=== PATIENT | female | born 1945 | race Caucasian/White ===

== ENCOUNTER 2016-09-18 19:25 | Inpatient (IN) | payer BC ==
[~2016-09-18] VITALS: Ht 162.6 cm; Wt 54.4 kg
--- NOTE | 2016-09-18 19:32 | NUR ---
PT SHOWING BIZARRE BEHAVIOR (PER CONSERVATOR)NEEDS PSYCH EVAL, PT BIB CONSERVATOR FOR EVALUATION, PT PRESENTS WITH BEHAVIOR CHANGES THEY NOTED,HX PSYCHOSIS,SCHIZO. PT IS ALERT, ORIENTED X 1-2, NO RESP DISTRESS NOTED OR REPORTED UPON ASSESSMENT...
[2016-09-18] MEDS ORDERED: CARB100O2 PO (19:56)
[2016-09-18] MEDS ORDERED: [UNRECOGNIZED DRUG - CODE] PO (19:56)
[2016-09-18] MEDS ORDERED: DOCU240C26 PO (19:56)
[2016-09-18] MEDS ORDERED: TRAZ-144 PO (19:56)
[2016-09-18] MEDS ORDERED: HALO2ORA PO (19:56)
[2016-09-18] MEDS ORDERED: MULT-70 PO (19:56)
[2016-09-18 21:00] LABS: BASOPHILS # (AUTO) 0.1 K/uL (0.0-8.0); BASOPHILS % (AUTO) 0.8 % (0.0-2.0); EOSINOPHILS # (AUTO) 0.1 K/uL (0.0-0.7); HEMATOCRIT 36.6 % (37-47); HEMOGLOBIN 12.4 G/DL (12.0-16.0); LYMPHOCYTES # (AUTO) 3.2 K/UL (0.8-4.8); LYMPHOCYTES % (AUTO) 43.6 % (20.5-51.5); MEAN CORPUSCULAR HGB CONC 34 g/dL (32.0-37.0); MEAN CORPUSCULAR VOLUME 94.9 FL (81.0-99.0); MONOCYTES # (AUTO) 0.5 K/UL (0.1-1.30); MONOCYTES % (AUTO) 6.8 % (0.0-11.0); NEUTROPHILS # (AUTO) 3.5 K/UL (1.8-8.9); NEUTROPHILS % (AUTO) 46.8 % (38.5-71.5); PLATELET COUNT (AUTO) 403 K/UL (150-450); RED BLOOD CELL COUNT(AUTO) 3.86 MIL/UL (4.2-5.4); RED CELL DISTRIBUTION WIDTH 12.2 % (11.5-14.5); WHITE BLOOD COUNT (AUTO) 7.4 K/UL (4.0-11.2)
[2016-09-18 21:09] LABS: AMMONIA 14 umol/L (11-32)
[2016-09-18 21:14] LABS: ETHANOL < 3 MG/DL (0-0)
[2016-09-18 21:19] LABS: CALCIUM 8.9 mg/dL (8.5-10.1); CARBON DIOXIDE 28 mmol/L (21-32); CHLORIDE 101 mmol/L (98-107); CREATININE 0.6 mg/dL (0.6-1.3); GLUCOSE 112 mg/dL (74-106); POTASSIUM 4.3 mmol/L (3.5-5.1); SODIUM SERUM 137 mmol/L (136-145); UREA NITROGEN, BLOOD 10 mg/dL (7-18)
[2016-09-18 21:24] LABS: *BILIRUBIN,URIN NEGATIVE (NEGATIVE); *BLOOD, URINE 1+ (NEGATIVE); *COLOR,URINE YELLOW (YELLOW); *KETONES,URINE NEGATIVE (NEGATIVE); *PROTEIN,URINE NEGATIVE (NEGATIVE); *UROBILINOGEN,URINE 0.2 E.U./dl (NORMAL); LEUKOCYTE ESTERASE ,URINE 1+ (NEGATIVE); PH,URINE 7.5 (5.0-8.0); UGLUCOSE NEGATIVE (NEGATIVE)
[2016-09-18 21:29] LABS: THYROID STIMULATING HORMONE 3.881 mIU/mL (0.358-3.740)
[2016-09-18 21:29] LABS: *AMPHETAMINE, URINE NEGATIVE (NEGATIVE); *BARBITURATE, URINE NEGATIVE (NEGATIVE); *CANNABINOID, URINE NEGATIVE (NEGATIVE); *COCCAINE, URINE NEGATIVE (NEGATIVE); *OPIATE, URINE NEGATIVE (NEGATIVE); *PHENCYCLIDINE SCREEN,URINE NEGATIVE (NEGATIVE)
[2016-09-18] MEDS ORDERED: Medication Not On Formulary EA (Docusate Calcium 240 MG) PO SCH (21:30)
[2016-09-18 21:31] LABS: *CLARITY,URINE SLIGHTLY CLOUDY (CLEAR); NITRITE, URINE POSITIVE (NEGATIVE)
[2016-09-18 21:33] LABS: BACTERIA,URINE MANY /HPF (NONE SEEN)
[2016-09-18 21:34] LABS: ACETAMINOPHEN < 2.0 ug/mL (10-30); ALANINE AMINOTRANSFERASE 25 U/L (14-59); ALBUMIN 3.8 g/dL (3.4-5.0); ALKALINE PHOSPHATASE 69 U/L (50-136); ASPARTATE AMINOTRANSFERASE 20 U/L (15-37); BILIRUBIN,DIRECT < 0.1 mg/dL (0.0-0.2); BILIRUBIN,TOTAL 0.1 mg/dL (0.2-1.0)
[2016-09-18] MEDS ORDERED: HALOPERIDOL 0.5 MG TABLET PO ONE (22:15)
[2016-09-18] MEDS ORDERED: diphenhydrAMINE 50 MG CAPSULE PO ONE (22:15)
[2016-09-18] MEDS ORDERED: LORAZEPAM 1 MG TABLET ONE (22:24)
[2016-09-18] MEDS ORDERED: diphenhydrAMINE 50 MG/1 ML VIAL IM ONE (22:30)
[2016-09-18] MEDS ORDERED: HALOPERIDOL LACTATE 5 MG/1 ML VIAL IM ONE (22:30)
[2016-09-18] MEDS ORDERED: diphenhydrAMINE 50 MG CAPSULE ONE (22:33)
[2016-09-18] MEDS ORDERED: diphenhydrAMINE 50 MG/1 ML VIAL ONE (22:39)
[2016-09-18] MEDS ORDERED: HALOPERIDOL LACTATE 5 MG/1 ML VIAL ONE (22:39)
--- NOTE | 2016-09-18 22:40 | NUR ---
pt given IM intervention as pt began to get agitated, restless, and argumentative, nurse attempted to redirect pt, offered food, water, but pt refused, pt continued to be agitated, and restless... pt hallucinating, with loose associations, speech is coherent but irrelevant at times....
[2016-09-18] MEDS ORDERED: LORAZEPAM 0.5 MG TABLET PO ONE (22:45)
--- NOTE | 2016-09-18 23:11 | NUR ---
Pt. admitted to Med surg , under care of Dr. Johnson, Belongs List completed, pt is alert, awake, oriented x 2, no resp distress noted or reported upon transfer assessment...
--- NOTE | 2016-09-18 23:20 | NUR ---
RECEIVED PT FROM ER BIB STAFF, PT IS ALERT AND ORIENTED TO NAME, PLACE AND TIME, WITH DISORGANIZED AND INCOHERENT SPEECH AT TIMES, AND VERBALLY ABUSIVE TO STAFF. PT REFUSING IV INSERTION, MD TINOCO MADE AWARE, PER OKAY, "NO NEED FOR IV". PLACED IN ROOM 223 MADE COMFORTABLE. ANSWERED PARTIAL QUESTIONS OF ADMISSION PACKET, REFUSED TO ANSWER SEVERAL QUESTIONS. BODY ASSESSMENT DONE PER PROTOCOL, REFUSED TO TAKE SHOES OFF TO CHECK FEET, UNABLE TO ASSESS FEET. PT REFUSING VS AT THIS TIME, STATING "THEY TOOK THEM IN THE ER, I WON'T LET YOU TAKE THEM AGAIN." VS STABLE IN ER, NO ACUTE DISTRESS NOTED. NO S/S RESPIRATORY DISTRESS OBSERVED/REPORTED. DENIES PAIN AT THIS TIME. 1:1 SITTER AT BEDSIDE FOR SAFETY. CALL LIGHT IS WITHIN REACH. SAFETY MEASURES IN PLACE. WILL CONTINUE TO MONITOR.
[2016-09-18] MEDS ORDERED: ACETAMINOPHEN 325 MG TABLET PO PRN (23:45)
[2016-09-18] MEDS ORDERED: MORPHINE SULFATE 2 MG/1 ML DISP.SYRIN IV PRN (23:45)
[2016-09-18] MEDS ORDERED: HALOPERIDOL LACTATE 5 MG/1 ML VIAL IM PRN (23:45)
[2016-09-18] MEDS ORDERED: LORAZEPAM 2 MG/1 ML VIAL IV PRN (23:45)
[2016-09-18] MEDS ORDERED: ONDANSETRON 4 MG/2 ML VIAL IV PRN (23:45)
[2016-09-18] MEDS ORDERED: ZOLPIDEM 5 MG TABLET PO PRN (23:45)
--- NOTE | 2016-09-19 02:07 | NUR ---
PT IN BED RESTING WITH EYES CLOSED, IN NO ACUTE DISTRESS. SITTER AT BEDSIDE, WILL CONTINUE TO MONITOR.
[2016-09-19 06:45] LABS: THYROID STIMULATING HORMONE 3.9 mIU/mL (0.358-3.740)
[2016-09-19 06:49] LABS: BASOPHILS # (AUTO) 0.1 K/uL (0.0-8.0); BASOPHILS % (AUTO) 0.7 % (0.0-2.0); EOSINOPHILS # (AUTO) 0.1 K/uL (0.0-0.7); EOSINOPHILS % (AUTO) 1.7 % (0.0-7.0); HEMATOCRIT 36.8 % (37-47); HEMOGLOBIN 12.5 G/DL (12.0-16.0); LYMPHOCYTES # (AUTO) 3.4 K/UL (0.8-4.8); LYMPHOCYTES % (AUTO) 39.9 % (20.5-51.5); MEAN CORPUSCULAR HEMOGLOBIN 32.2 UUG (27.0-31.0); MEAN CORPUSCULAR HGB CONC 34 g/dL (32.0-37.0); MEAN CORPUSCULAR VOLUME 94.7 FL (81.0-99.0); MONOCYTES # (AUTO) 0.5 K/UL (0.1-1.30); MONOCYTES % (AUTO) 6.2 % (0.0-11.0); NEUTROPHILS # (AUTO) 4.5 K/UL (1.8-8.9); NEUTROPHILS % (AUTO) 51.5 % (38.5-71.5); PLATELET COUNT (AUTO) 385 K/UL (150-450); RED BLOOD CELL COUNT(AUTO) 3.89 MIL/UL (4.2-5.4); RED CELL DISTRIBUTION WIDTH 11.9 % (11.5-14.5); WHITE BLOOD COUNT (AUTO) 8.6 K/UL (4.0-11.2)
--- NOTE | 2016-09-19 06:56 | NUR ---
PATIENT SLEPT WELL PER SHIFT. CONTINUES TO REFUSE CARE, TELLING STAFF TO GET OUT OF THE ROOM. UNABLE TO OBTAIN VS, PT CONTINUES TO REFUSE. PT IN NO ACUTE DISTRESS. NO C/O PAIN. NO S/S OF RESPIRATORY DISTRESS NOTED. SITTER AT BEDSIDE AT ALL TIMES FOR SAFETY. ALL NEEDS ATTENDED AND MET. CALL LIGHT IN REACH. SAFETY AND COMFORT MEASURES PROVIDED.
--- NOTE | 2016-09-19 07:10 | NUR ---
PT IN ROOM RESTING. A/O X2. NO S/S OF DISTRESS OBSERVED. DENIED PAIN. PT WITHDRAWN. CONTINUES WITH 1:1 SITTER FOR SAFETY.
[2016-09-19 07:42] LABS: ALBUMIN 3.6 g/dL (3.4-5.0); BILIRUBIN,TOTAL 0.2 mg/dL (0.2-1.0); CREATININE 0.6 mg/dL (0.6-1.3); MAGNESIUM 2.3 mg/dL (1.8-2.4); PHOSPHOROUS 4.5 mg/dL (2.5-4.9); POTASSIUM 4.4 mmol/L (3.5-5.1); TOTAL PROTEIN, SERUM 6.8 g/dL (6.4-8.2)
[2016-09-19] MEDS ORDERED: PSYLLIUM HUSK PO SCH (09:00)
[2016-09-19] MEDS ORDERED: Medication Not On Formulary EA (Multivitamins (Multivitamin) 1 EACH) PO SCH (09:00)
[2016-09-19] MEDS: NICOTINE 21 MG/24HR PATCH TD SCH (09:00)
[2016-09-19] MEDS: DOCUSATE SODIUM 250 MG CAPSULE PO SCH (09:00)
[2016-09-19] MEDS: MULTIVITAMINS,THERAPEUTIC TABLET PO SCH (09:18)
[2016-09-19] MEDS: PANTOPRAZOLE SODIUM 40 MG TABLET.DR PO SCH (09:19)
--- NOTE | 2016-09-19 10:00 | NUR ---
PT REFUSED COLACE AND NICOTINE PATCH. PT UNCOOPERATIVE AND VERBALLY ABUSIVE, STATES "GET OUT!" PT IS PARANOID SAYING "I DON'T NEED SOMEONE STARING AT ME, CLOSE THE CURTAINS!"
[2016-09-19] MEDS ORDERED: CEFTRIAXONE 1 G in IV DEXTROSE 5% 50 ML IV SCH (11:00)
[2016-09-19] MEDS: PSYLLIUM SEED PACKET PO SCH ×2 (11:00→19:00)
[2016-09-19 11:33] VITALS: BP 105/75
[2016-09-19 15:54] VITALS: BP 145/81
--- NOTE | 2016-09-19 16:34 | NUR ---
PT SEEN BY . DETAILED REPORT GIVEN. SEE NEW ORDERS.
[2016-09-19] MEDS ORDERED: HALOPERIDOL 5 MG TABLET PO SCH (17:00)
[2016-09-19] MEDS: CLONAZEPAM 0.5 MG TABLET PO SCH (17:30)
[2016-09-19] MEDS: HALOPERIDOL LACTATE 10 MG/5 ML ORAL SOLUTION UDC PO SCH (17:32)
--- NOTE | 2016-09-19 18:08 | NUR ---
END OF SHIFT NOTES. PT IS ALERT, AWAKE, AND ORIENTED X2. NO ACUTE DISTRESS THROUGHOUT SHIFT. DENIES PAIN. V/S STABLE. PT CALM AND COOPERATIVE, COMPLIANT WITH PO MEDS AT THIS TIME. AMBULATES TO THE BATHROOM. GOOD APPETITE. NEEDS MET BY STAFF. CONTINUES WITH 1:1 SITTER FOR SAFETY.
[2016-09-19 20:00] VITALS: BP 117/80
--- NOTE | 2016-09-19 20:00 | NUR ---
PT IN BED AWAKE A/OX2, NO ACUTE DISTRESS NOTED. NO S/S OF RESPIRATORY DISTRESS NOTED/REPORTED. CALLING STAFF NAMES. DENIES PAIN OR DISCOMFORT AT THIS TIME. 1:1 SITTER AT BED SIDE FOR SAFETY. WILL CONTINUE TO MONITOR.
[2016-09-19] MEDS: SULFAMETH/TRIMETH 800/160 MG TABLET PO SCH (20:20)
[2016-09-19] MEDS: ATORVASTATIN 20 MG TABLET PO SCH (20:20)
[2016-09-19] MEDS: CARBAMAZEPINE 200 MG TABLET PO SCH (20:22)
[2016-09-20 05:58] VITALS: BP 100/71
[2016-09-20] MEDS: PANTOPRAZOLE SODIUM 40 MG TABLET.DR PO SCH (06:02)
--- NOTE | 2016-09-20 06:34 | NUR ---
PT IN BED SLEEPING COMFORTABLY, AWAKENS WHEN NAME CALLED. SLEPT WELL PER SHIFT. NO ACUTE DISTRESS NOTED. VS STABLE. PT CONTINUES VERBALLY ABUSIVE TO STAFF, HOWEVER COMPLIANT WITH MEDS THIS AM. ALL NEEDS MET BY STAFF. 1:1 SITTER AT BEDSIDE FOR SAFETY. SAFETY AND COMFORT MEASURES PROVIDED. CONTINUE WITH PLAN OF CARE.
--- NOTE | 2016-09-20 07:30 | NUR ---
pt sitting in her bed ,pt is verbally abusive yelling she wants her door closed,sitter is watching her nursing home manager olu notified.
--- NOTE | 2016-09-20 08:13 | NUR ---
pt refusing to take her medication,yelling screaming on staff , notified.
[2016-09-20] MEDS: SULFAMETH/TRIMETH 800/160 MG TABLET PO SCH ×2 (08:29→21:42)
[2016-09-20] MEDS: DOCUSATE SODIUM 250 MG CAPSULE PO SCH (08:29)
[2016-09-20] MEDS: CLONAZEPAM 0.5 MG TABLET PO SCH ×2 (08:29→16:11)
[2016-09-20] MEDS: NICOTINE 21 MG/24HR PATCH TD SCH (08:29)
[2016-09-20] MEDS: MULTIVITAMINS,THERAPEUTIC TABLET PO SCH (08:29)
[2016-09-20] MEDS: CARBAMAZEPINE 200 MG TABLET PO SCH ×2 (08:29→21:42)
[2016-09-20] MEDS: HALOPERIDOL LACTATE 10 MG/5 ML ORAL SOLUTION UDC PO SCH ×3 (08:32→16:11)
[2016-09-20] MEDS: PSYLLIUM SEED PACKET PO SCH ×2 (10:13→18:01)
[2016-09-20 11:42] VITALS: BP 85/59
--- NOTE | 2016-09-20 14:00 | NUR ---
pt is resting in her room ,eat her lunch.no combativeness noted.sitter at bed side.
[2016-09-20 20:12] VITALS: BP 92/52
[2016-09-20] MEDS: ATORVASTATIN 20 MG TABLET PO SCH (21:42)
[2016-09-21 05:00] VITALS: BP 93/63
[2016-09-21] MEDS: PANTOPRAZOLE SODIUM 40 MG TABLET.DR PO SCH (06:01)
--- NOTE | 2016-09-21 06:29 | NUR ---
END OF SHIFT NOTE: PT SLEPT WELL. NO ACUTE DISTRESS PER SHIFT. FOUND TALKING TO SELF THIS MORNING, PT STATES "I'M TALKING TO SOMEONE WHO IS OUT THERE TALKING BACK TO ME." CONTINUES VERBALLY ABUSIVE TO STAFF, HOWEVER COMPLIANT WITH MEDICATIONS. ON FOR SAFETY. COMFORT AND SAFETY MEASURES PROVIDED.
[2016-09-21] MEDS: DOCUSATE SODIUM 250 MG CAPSULE PO SCH (08:03)
[2016-09-21] MEDS: SULFAMETH/TRIMETH 800/160 MG TABLET PO SCH (08:03)
[2016-09-21] MEDS: CARBAMAZEPINE 200 MG TABLET PO SCH (08:03)
[2016-09-21] MEDS: MULTIVITAMINS,THERAPEUTIC TABLET PO SCH (08:03)
[2016-09-21] MEDS: HALOPERIDOL LACTATE 10 MG/5 ML ORAL SOLUTION UDC PO SCH ×3 (08:03→16:12)
[2016-09-21] MEDS: NICOTINE 21 MG/24HR PATCH TD SCH (08:03)
[2016-09-21] MEDS: CLONAZEPAM 0.5 MG TABLET PO SCH ×2 (08:03→16:12)
[2016-09-21] MEDS ORDERED: ALBUTEROL SULFATE 2.5 MG/3 ML NEBU NEB PRN (09:15)
[2016-09-21] MEDS ORDERED: IPRATROPIUM BROMIDE 0.5 MG/2.5 ML NEBU NEB PRN (09:15)
[2016-09-21] MEDS ORDERED: FLUTICASONE/SALMETEROL 250/50 INHALER INH SCH (09:15)
[2016-09-21] MEDS: PSYLLIUM SEED PACKET PO SCH ×2 (10:27→18:00)
[2016-09-21 12:00] VITALS: BP 113/72
[2016-09-21 16:00] VITALS: BP 117/74
[2016-09-21] MEDS ORDERED: SULF1TAB3 PO (16:03)
[2016-09-21] MEDS ORDERED: Carbamazepine PO (16:03)
[2016-09-21] MEDS ORDERED: ATOR20TA PO (16:03)
[2016-09-21] MEDS ORDERED: Docusate Sodium PO (16:03)
[2016-09-21] MEDS ORDERED: Haloperidol Lactate IM (16:03)
[2016-09-21] MEDS ORDERED: IPRA0.2S6 NEB (16:03)
[2016-09-21] MEDS ORDERED: Acetaminophen PO (16:03)
[2016-09-21] MEDS ORDERED: FLUT1DIS28 INH (16:03)
[2016-09-21] MEDS ORDERED: NICO1PAT28 TD (16:03)
[2016-09-21] MEDS ORDERED: PANT40TA2 PO (16:03)
[2016-09-21] MEDS ORDERED: Zolpidem Tartrate PO (16:03)
[2016-09-21] MEDS ORDERED: HALO2ORA4 PO (16:03)
[2016-09-21] MEDS ORDERED: ALBU2.5V7 NEB (16:03)
[2016-09-21] MEDS ORDERED: CLON0.5T4 PO (16:03)
--- NOTE | 2016-09-21 16:06 | NUR ---
The patient will be discharged today to [facility] [ ; [address] [place] [address]] via [facility] [ - Auth#[id number]] per [facility]. Had been in contact with Ms. Acosta [ - Duty Worker Unit 4] who was covering for the patient's conservator, Garo [ ]. She was very pleased that the patient is going to a SNF. Also spoke to Rajni [ ], technology administrator of [facility] [employer] and informed her of the discharge. She was very thankful because she could no longer provide the care the patient needed. Sandra from [facility] confirmed that they received the authorization and will admit the patient today. Her nurse, Rosalina, is aware of her discharge and will call the facility for the report.
--- NOTE | 2016-09-21 16:59 | NUR ---
D/C REPORT GIVEN TO FRITZ COYNE.
--- NOTE | 2016-09-21 19:00 | NUR ---
RECD PT IN APPARENTLY FAIR CONDITION,VITALS TAKEN AND RECORDER, NO ACUTE SISTRESS NOTED, AWAITING P/U TO BE DCD TO [facility].QUIETLY RESTING IN BED. 1:1 SITTER AT BEDSIDE.
[2016-09-21 19:42] VITALS: BP 101/66
--- NOTE | 2016-09-21 20:20 | NUR ---
TRANSPORT TEAM HERE , REPORT GIVEN , PT. READY FOR DC TO GO TO [facility], VITAL SIGNS W/I NORMAL LIMITS, AFEBRILE. ASYMPTOMATIC OF ANY DISTRESS. ALL BELONGINGS TAKEN AND PT TRANSPORTED VIA GURNEY WITH NO PROBLEMS.
[2016-09-22 09:10] LABS: *VITAMIN D 25-OH VIT D 37 ng/mL (.); *VITAMIN D 25-OH, D2 <1.0 ng/mL (.); *VITAMIN D 25-OH, D3 37 ng/mL (.)
== END 2016-09-21 20:21 | DRG 689 ==
LOC: ER 19:28 → MED 22:40
PROVIDERS: ADMIT Internal Medicine; ATTEND Internal Medicine
DX: N39.0 Urinary tract infection, site not specified (principal); G93.41 Metabolic encephalopathy; J44.1 Chronic obstructive pulmonary disease with (acute) exacerbation; F20.0 Paranoid schizophrenia; E03.9 Hypothyroidism, unspecified; F17.210 Nicotine dependence, cigarettes, uncomplicated; Z88.1 Allergy status to other antibiotic agents; Z53.29 Procedure and treatment not carried out because of patient's decision for other reasons; I10 Essential (primary) hypertension; Z79.899 Other long term (current) drug therapy; M19.90 Unspecified osteoarthritis, unspecified site; E78.5 Hyperlipidemia, unspecified; Z87.01 Personal history of pneumonia (recurrent); Z86.59 Personal history of other mental and behavioral disorders; K59.00 Constipation, unspecified
CPT/HCPCS: 36415; 70030-TC; 71010; 80307; 83735; 84100; 84443; 85025; 85730; 93005; A4663; G0480-TC; G6040-TC; J0696; J1200; J1630; J7060; Q0163